=== PATIENT | male | born 1980 | race African-American/Black ===

== ENCOUNTER 2016-09-19 15:49 | Emergency (ER) | payer OTHER ==
[~2016-09-19] VITALS: Ht 170.2 cm; Wt 120.4 kg
[~2016-09-19 15:49] MED LIST: AUGMENTIN875 MG PO; BACTRIM,SEPT1 TABLET PO; NOHOMEMEDS; PERCOCET 5/31 TABLET PO; ULTRAM50 MG PO
[2016-09-19 18:19] VITALS: BP 167/93
== END 2016-09-19 18:21 | disposition home or self-care (01) ==
LOC: EME 15:49
PROC: 0HQ4XZZ Repair Neck Skin, External Approach (ICD-10-PCS; principal; 2016-09-19)
DX: S11.91XA Laceration without foreign body of unspecified part of neck, initial encounter (principal); Y04.0XXA Assault by unarmed brawl or fight, initial encounter
CPT/HCPCS: 99281; 99284

== ENCOUNTER 2016-09-24 11:06 | Emergency (ER) | payer OTHER ==
[~2016-09-24] VITALS: Ht 170.2 cm; Wt 118.9 kg
[2016-09-24 11:14] VITALS: BP 160/86
== END 2016-09-24 12:09 | disposition home or self-care (01) ==
LOC: EME 11:06 → EXP 11:06
DX: S01.81XD Laceration without foreign body of other part of head, subsequent encounter (principal)
CPT/HCPCS: 99281; 99283

== ENCOUNTER 2017-06-23 04:59 | Emergency (ER) | payer OTHER ==
[~2017-06-23] VITALS: Ht 172.7 cm; Wt 117.1 kg
[2017-06-23 06:26] VITALS: BP 153/90
== END 2017-06-23 06:27 | disposition home or self-care (01) ==
LOC: EME 04:59
PROC: 09C4XZZ Extirpation of Matter from Left External Auditory Canal, External Approach (ICD-10-PCS; principal; 2017-06-23)
DX: H61.22 Impacted cerumen, left ear (principal); F17.200 Nicotine dependence, unspecified, uncomplicated
CPT/HCPCS: 99281; 99283